=== PATIENT | female | born 1930 | race Caucasian/White ===

== ENCOUNTER 2018-10-27 12:37 | Emergency (ER) | payer MEDICARE, OTHER ==
--- NOTE | 2018-10-27 12:58 | EDM.PDOC ---
ED HPI GENERAL MEDICAL PROBLEM - General Stated Complaint: HURT RIBS Time Seen by Provider: 10/27/18 12:45 Source of Information: Reports: Patient History Limitations: Reports: No Limitations - History of Present Illness INITIAL COMMENTS - FREE TEXT/NARRATIVE: HISTORY AND PHYSICAL: History of present illness: Patient is an 88-year-old female presents to the ED today for concern of a fall that occurred last night when she was at home. Patient states today she has left -sided rib pain and left shoulder pain after the fall. Patient states she does not believe she hit her head but is not completely sure either. Patient was alone when she was walking to her dresser and had tripped on some clothing and fell into the dresser and onto the floor. Other than the left-sided rib pain and left-sided shoulder pain, patient denies any other symptoms or concerns at this time. Patient states she has a history of high blood pressure that she is on medications for but denies any other health history. Patient does take a baby aspirin daily. Patient denies fever, chills, chest pain, shortness of breath, or cough. Denies headache, neck stiff ness, change in vision. Denies nausea, vomiting, abdominal pain, diarrhea, constipation, or dysuria. Has not noted any blood in urine or stool. Patient has been eating and drinking appropriately. Review of systems: As per history of present illness and below otherwise all systems reviewed and negative. Past medical history: As per history of present illness and as reviewed below otherwise noncontributory. Surgical history: As per history of present illness and as reviewed below otherwise noncontributory. Social history: See social history for further information Family history: As per history of present illness and as reviewed below otherwise noncontributory. Physical exam: General: Patient is alert, oriented, and in no acute distress. Patient laying comfortably on exam table. Patient speaking clearly in full sentences without difficulty. HEENT: Atraumatic, normocephalic, pupils equal and reactive bilaterally, negative for conjunctival pallor or scleral icterus, mucous membranes moist, TMs normal bilaterally, throat clear, neck supple, nontender, trachea midline. No drooling or trismus noted. No meningeal signs. No hot potato voice noted. Lungs: Clear to auscultation, breath sounds equal bilaterally, chest nontender. There is a 3 cm x 2 cm bruise on the posterior ribs just inferior to the axilla that is tender to palpation. Heart: S1S2, regular rate and rhythm without overt murmur Abdomen: Soft, nondistended, nontender. Negative for masses or hepatosplenomegaly. Negative for costovertebral tenderness. Pelvis: Stable nontender. Genitourinary: Deferred. Rectal: Deferred. Skin: Intact, warm, dry. No lesions or rashes noted. Extremities: Negative for cords or calf pain. Neurovascular unremarkable. There is a moderate amount of bruising on the posterior left humerus; approximately 6cm by 3 cm. Radial pulse grossly intact without obvious deformity, step-off, or crepitus noted of the arm. Patient has full range of motion of the shoulder elbow wrist and digits of the extremity. Neuro: Awake, alert, oriented. Cranial nerves II through XII unremarkable. Cerebellum unremarkable. Motor and sensory unremarkable throughout. Exam nonfocal. Notes: Trauma alert was called upon arrival to the ED as patient is on a baby aspirin daily. Dr. Billings involved in patient care. Discussed the importance of follow-up with an orthopedic provider and primary care provider. Voices understanding and is agreeable to plan of care. Denies any further questions or concerns at this time. Diagnostics: CBC, CMP, troponin, UA, EKG, chest x-ray, head CT, left humerus x-ray, shoulder x-ray left Therapeutics: Arm sling, Rocephin Prescription: Bactrim DS Impression: Urinary tract infection Possible avulsion injury of the greater tuberosity of humerus Plan: 1. Take medications as prescribed. You can alternate ibuprofen and Tylenol as directed for pain and discomfort. 2. Follow-up with the orthopedic provider and her primary care provider as discussed. 3. Return to the ED as needed and as discussed. Definitive disposition and diagnosis as appropriate pending reevaluation and review of above. Left Back Pain Score (Numeric/FACES): 10 - Related Data Allergies Allergy/AdvReac Type Severity Reaction Status Date / Time No Known Allergies Allergy Verified 10/27/18 12:56 Home Meds: Home Meds Diltiazem HCl [Dilt-Xr] 180 mg PO DAILY 04/19/16 [History] Pentosan Polysulfate Sodium [Elmiron] 100 mg PO TID 04/19/16 [History] Lisinopril [Prinivil] 20 mg PO BID #30 tablet 11/01/16 [Rx] amLODIPine [Norvasc] 5 mg PO DAILY #15 tablet 04/21/16 [Rx] Past Medical History Other HEENT History: bialteral hearing aid Cardiovascular History: Reports: High Cholesterol, Hypertension Respiratory History: Reports: None Gastrointestinal History: Reports: Gastritis Genitourinary History: Reports: None FORE[employer] SU[employer] SPECIALIST History: Reports: Musculoskeletal History: Reports: None Neurological History: Reports: None Psychiatric History: Reports: None Endocrine/Metabolic History: Reports: None Hematologic History: Reports: None Dermatologic History: Reports: None - Infectious Disease History Infectious Disease History: Reports: Chicken Pox, Measles, Mumps - Past Surgical History Other HEENT Surgeries/Procedures: left eye surgery Social & Family History - Family History Family Medical History: Noncontributory Other HEENT Family History: folks are both gone for many yeras, cannot tell illness they have. Family hiostoery is pretty healthy, sister of old age. No pertinent illnesses for livbing sisters. - Caffeine Use Caffeine Use: Reports: Coffee ED ROS GENERAL - Review of Systems Review Of Systems: ROS reveals no pertinent complaints other than HPI. ED EXAM, UPPER BACK/NECK PAIN - Physical Exam Exam: See Below (See dictation) Course - Vital Signs Last Recorded V/S: Last Vital Signs Temp 36.3 C 10/27/18 12:56 Pulse 82 10/27/18 12:56 Resp 18 10/27/18 12:56 BP 174/92 H 10/27/18 12:56 Pulse Ox 96 10/27/18 12:56 - Orders/Labs/Meds Orders: Active Orders 24 hr Category Date Time Status Admission Status [Patient Status] [ADT] Stat ADT 10/27/18 13:42 Active EKG Documentation Completion [RC] STAT Care 10/27/18 12:52 Active CULTURE URINE [RM] Stat Lab 10/27/18 13:53 Received DME for Discharge [COMM] Stat Oth 10/27/18 13:58 Ordered Labs: Laboratory Tests 10/27/18 10/27/18 10/27/18 Range/Units 13:51 13:51 13:53 WBC 6.60 (4.0-11.0) K/uL RBC 3.88 L (4.30-5.90) M/uL Hgb 12.1 (12.0-16.0) g/dL Hct 37.6 (36.0-46.0) % MCV 96.9 (80.0-98.0) fL MCH 31.2 (27.0-32.0) pg MCHC 32.2 (31.0-37.0) g/dL RDW Std Deviation 51.3 (28.0-62.0) fl RDW Coeff of Anna 15 (11.0-15.0) % Plt Count 217 (150-400) K/uL MPV 9.30 (7.40-12.00) fL Neut % (Auto) 57.7 (48.0-80.0) % Lymph % (Auto) 26.2 (16.0-40.0) % [place] % (Auto) 10.0 (0.0-15.0) % Eos % (Auto) 5.8 (0.0-7.0) % Baso % (Auto) 0.3 (0.0-1.5) % Neut # (Auto) 3.8 (1.4-5.7) K/uL Lymph # (Auto) 1.7 (0.6-2.4) K/uL [place] # (Auto) 0.7 (0.0-0.8) K/uL Eos # (Auto) 0.4 (0.0-0.7) K/uL Baso # (Auto) 0.0 (0.0-0.1) K/uL Nucleated RBC % 0.0 /100WBC Nucleated RBCs # 0 K/uL Sodium 145 (136-145) mmol/L Potassium 4.1 (3.5-5.1) mmol/L Chloride 110 H (98-107) mmol/L Carbon Dioxide 23.4 (21.0-32.0) mmol/L BUN 14 (7.0-18.0) mg/dL Creatinine 0.9 (0.6-1.0) mg/dL Est Cr Clr Drug Dosing 38.88 mL/min Estimated GFR (MDRD) 59.1 ml/min Glucose 107 H (74-106) mg/dL Calcium 9.3 (8.5-10.1) mg/dL Total Bilirubin 0.3 (0.2-1.0) mg/dL AST 18 (15-37) IU/L ALT 20 (14-63) IU/L Alkaline Phosphatase 63 (46-116) U/L Troponin I < 0.050 (0.000-0.056) ng/mL Total Protein 7.1 (6.4-8.2) g/dL Albumin 4.1 (3.4-5.0) g/dL Globulin 3.0 (2.6-4.0) g/dL Albumin/Globulin Ratio 1.4 (0.9-1.6) Urine Color YELLOW Urine Appearance SLT CLOUDY Urine pH 6.0 (5.0-8.0) Ur Specific [place] <= 1.005 (1.001-1.035) Urine Protein NEGATIVE (NEGATIVE) mg/dL Urine Glucose (UA) NEGATIVE (NEGATIVE) mg/dL Urine Ketones NEGATIVE (NEGATIVE) mg/dL Urine Occult Blood TRACE-INTACT H (NEGATIVE) Urine Nitrite POSITIVE H (NEGATIVE) Urine Bilirubin NEGATIVE (NEGATIVE) Urine Urobilinogen 0.2 (<2.0) EU/dL Ur Leukocyte Esterase LARGE H (NEGATIVE) Urine RBC 0-1 (0-2/HPF) Urine WBC 35-45 (0-5/HPF) Ur Epithelial Cells RARE (NONE-FEW) Urine Bacteria 1+ H (NEGATIVE) Meds: Medications Discontinued Medications Generic Name Dose Route Start Last Admin Trade Name Freq PRN Reason Stop Dose Admin Ceftriaxone Sodium 1 gm 10/27/18 14:17 Rocephin IM 10/27/18 14:18 ONETIME ONE Lidocaine HCl 5 ml 10/27/18 14:21 Xylocaine-Mpf 1% INJECT 10/27/18 14:22 ONETIME ONE Departure - Departure Time of Disposition: 14:33 Disposition: Home, Self-Care 01 Clinical Impression: Urinary tract infection Qualifiers: Urinary tract infection type: acute cystitis Hematuria presence: with hematuria Qualified Code(s): N30.01 - Acute cystitis with hematuria Humeral avulsion glenohumeral ligament lesion Qualifiers: Encounter type: initial encounter Laterality: left Qualified Code(s): S43.492A - Other sprain of left shoulder joint, initial encounter - Discharge Information Instructions: Urinary Tract Infection, Adult, [id number] Referrals: Sari Hughes DO [Primary Care Provider] - Additional Instructions: The following information is given to patients seen in the emergency department who are being discharged to home. This information is to outline your options for follow-up care. We provide all patients seen in our emergency department with a follow-up referral. The need for follow-up, as well as the timing and circumstances, are variable depending upon the specifics of your emergency department visit. If you don't have a primary care physician on staff, we will provide you with a referral. We always advise you to contact your personal physician following an emergency department visit to inform them of the circumstance of the visit and for follow-up with them and/or the need for any referrals to a consulting specialist. The emergency department will also refer you to a specialist when appropriate. This referral assures that you have the opportunity for follow-up care with a specialist. All of these measure are taken in an effort to provide you with optimal care, which includes your follow-up. Under all circumstances we always encourage you to contact your private physician who remains a resource for coordinating your care. When calling for follow-up care, please make the office aware that this follow-up is from your recent emergency room visit. If for any reason you are refused follow-up, please contact the [facility] Emergency Department at and asked to speak to the emergency department charge nurse. [facility] [address] [place] [id number] [id number] 1. Take medications as prescribed. You can alternate ibuprofen and Tylenol as directed for pain and discomfort. 2. Follow-up with the orthopedic provider and her primary care provider as discussed. 3. Return to the ED as needed and as discussed. - My Orders Last 24 Hours: My Active Orders 10/27/18 12:52 EKG Documentation Completion [RC] STAT 10/27/18 13:42 Admission Status [Patient Status] [ADT] Stat 10/27/18 13:53 CULTURE URINE [RM] Stat 10/27/18 13:58 DME for Discharge [COMM] Stat - Assessment/Plan Last 24 Hours: My Active Orders 10/27/18 12:52 EKG Documentation Completion [RC] STAT 10/27/18 13:42 Admission Status [Patient Status] [ADT] Stat 10/27/18 13:53 CULTURE URINE [RM] Stat 10/27/18 13:58 DME for Discharge [COMM] Stat
[2018-10-27 13:02] VITALS: BP 174/92
--- NOTE | 2018-10-27 13:37 | CR ---
EXAMINATION: PA and lateral chest, 2 views of the left ribs HISTORY: Rib injury. COMPARISON: 04/19/2016 FINDINGS: Mild rightward deviation of the trachea with right paratracheal soft tissue prominence, unchanged. The cardiomediastinal silhouette is stable. No pulmonary infiltrates, effusions or pneumothorax. Aortic vascular calcifications. Osseous structures appear osteopenic. No displaced rib fracture identified. IMPRESSION: No acute cardiopulmonary process.
--- NOTE | 2018-10-27 13:46 | CR ---
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 Possible small avulsion fracture of the greater tuberosity. The clavicle appears intact. Glenohumeral joint space is preserved. Overall osseous structures appear osteopenic. Radiocapitellar alignment is normal. No elbow joint effusion. IMPRESSION: 1. Possible avulsion injury of the greater tuberosity, only characterized on the axial view. 2. Otherwise the remaining osseous structures appear osteopenic and intact.
--- NOTE | 2018-10-27 14:16 | CT ---
EXAMINATION: Non contrast CT head. Coronal and sagittal reformats. HISTORY: Fall FINDINGS: No evidence of intra or extra axial hemorrhage, mass, midline shift, hydrocephalus or edema. Severe periventricular and subcortical white matter hypodensities are noted. Moderate generalized atrophy. No hypoattenuation changes in the major vascular territories to suggest acute infarct. No abnormal intracranial calcifications are detected. Vascular calcifications are present. Paranasal sinuses and mastoid air cells are well aerated without substantial findings. Pituitary fossa appears unremarkable. Orbits and globes are symmetric. Calvarium is intact. No evidence of skull fracture. IMPRESSION: 1. Moderate generalized atrophy and severe small vessel ischemic changes.
[2018-10-27] MEDS ORDERED: cefTRIAXone 1 GM Vial IM ONE (14:17)
[2018-10-27 14:26] LABS: CHLORIDE,CL 110 mmol/L (98-107); SODIUM,NA 145 mmol/L (136-145)
== END 2018-10-27 14:50 | disposition home or self-care (01) ==
LOC: MW.ED 12:37
DX: S40.012A Contusion of left shoulder, initial encounter (principal); N30.01 Acute cystitis with hematuria; I10 Essential (primary) hypertension; E78.00 Pure hypercholesterolemia, unspecified; Z79.899 Other long term (current) drug therapy; W18.09XA Striking against other object with subsequent fall, initial encounter; Y92.009 Unspecified place in unspecified non-institutional (private) residence as the place of occurrence of the external cause
CPT/HCPCS: 36415; 70450; 71046; 71100; 73030; 73060; 80053; 81001; 84484; 85025; 87086; 87088; 87186; 93005; 96372; 99284; J0696; J2001